=== PATIENT | female | born 1980 | race African-American/Black ===

== ENCOUNTER 2017-08-22 09:48 | Emergency (ER) | payer OTHER ==
[~2017-08-22] VITALS: Ht 170.2 cm; Wt 61.4 kg
[2017-08-22] MEDS ORDERED: PERTUSS(ACELL),DIPH,TET VAC/PF 0.5 ML VIAL IM ONE (10:45)
[2017-08-22] MEDS ORDERED: BACITRACIN 0.9 GM PACKET OINTMENT TP ONE (13:00)
[2017-08-22 13:15] VITALS: BP 120/70
== END 2017-08-22 13:25 | disposition home or self-care (01) ==
LOC: EMS 09:50
DX: S91.312A Laceration without foreign body, left foot, initial encounter (principal); Z02.89 Encounter for other administrative examinations; Y35.811A Legal intervention involving manhandling, law enforcement official injured, initial encounter; Y93.89 Activity, other specified; Y92.810 Car as the place of occurrence of the external cause; Y99.8 Other external cause status
CPT/HCPCS: 90715; 99284